=== PATIENT | female | born 1975 | race African-American/Black ===

== ENCOUNTER 2021-12-29 12:07 | Emergency (ER) | payer OTHER ==
[2021-12-29 12:38] VITALS: BP 149/78; PULSE 76; TEMP 97.9; BMI 37.5
[2021-12-29] MEDS ORDERED: KETOROLAC TROMETHAMINE 30 MG/1 ML VIAL IM ONE (14:05)
[2021-12-29] MEDS ORDERED: LIDOCAINE 5% TOPICAL PATCH TP ONE (14:05)
[2021-12-29] MEDS ORDERED: LIDOCAINE 5% TOPICAL PATCH ONE (14:19)
[2021-12-29] MEDS ORDERED: KETOROLAC TROMETHAMINE 30 MG/1 ML VIAL ONE (14:19)
[2021-12-29] MEDS ORDERED: METHOCARBAMOL 500 MG TABLET ONE (14:19)
[2021-12-29] MEDS ORDERED: METHOCARBAMOL 500 MG TABLET PO ONE (14:32)
[2021-12-29] MEDS ORDERED: LIDOCAINE PATCH REMOVAL MC ONE (22:00)
[2021-12-30] MEDS ORDERED: METHOCARBAMOL 750 MG TAB PO ONE (14:05)
== END 2021-12-29 14:45 | disposition home or self-care (01) ==
LOC: JER 12:07
PROC: 3E023GC Introduction of Other Therapeutic Substance into Muscle, Percutaneous Approach (ICD-10-PCS; principal; 2021-12-29)
DX: M54.50 Low back pain, unspecified (principal)
CPT/HCPCS: 99284-25